=== PATIENT | female | born 1950 | race Caucasian/White ===

== ENCOUNTER 2016-07-16 11:14 | Emergency (ER) | payer OTHER ==
[~2016-07-16] VITALS: Ht 172.7 cm; Wt 110.0 kg
[~2016-07-16 11:14] MED LIST: ALBU8I INH; AMIT50 PO; CYMB60CA PO; FERR324T4 PO; FOLI1TAB PO; FURO1TAB93 PO; GABA300 PO; HYDR-3535 PO; KCL20 PO; MECL25 PO; MULT1TAB46 PO; NITR-29 PO; OXYC1SOL5 PO; PRED10 PO; PROM25TA5 PO; ROBA750T3 PO; WARF10 PO; WARF2.5 PO; Z.0.OXYGEN INH; Z.0.WALKERFRONT; Z.0.WHEELELR; [UNRECOGNIZED DRUG - SUPPLY]
[2016-07-16 11:19] VITALS: BP 145/77; PULSE 79; RESP 20
--- NOTE | 2016-07-16 11:38 | PD ---
HPI Chief Complaint: General Weakness Time Seen by Provider: 11:32 Travel History International Travel<30 days: No Contact w/Intl Traveler<30days: No Traveled to known affect area: No History of Present Illness HPI Patient comes in by EMS from her pain management doctor's office after getting stuck on the toilet. Patient states she went to provide a urine sample for her pain management doctor, when she went to sit on the toilet found was a little lower than she was expecting causing her to sit down hard on the toilet. Patient was able to provide a urine specimen for pain management doctor however was not able get herself up off the toilet and was brought into the emergency department further treatment and evaluation. Patient complaining of pain in her pelvis that is new. Patient denies anything making it better or worse. Pain is aching like in nature. Patient denies any syncope, near-syncope, chest pain, shortness of breath, nausea, vomiting, head injury, loss consciousness, numbness or tingling, abdominal pain, headache, fevers, or diarrhea. Patient also complaining of right knee pain has been going on on for a while now. Patient states that she does fall frequently most recently approximately a week ago and is uncertain if she landed on her knee at that time or not. PFSH Past Medical History Hx Anticoagulant Therapy: Yes Arthritis: Yes Asthma: No Autoimmune Disease: Yes (LUPUS, RHEUMATOID ARTHRITIS) Anxiety: Yes Depression: Yes Heart Rhythm Problems: No Cancer: No Cardiovascular Problems: Yes (CHF) High Cholesterol: No Chemotherapy: No Chest Pain: No Congestive Heart Failure: Yes COPD: Yes Cerebrovascular Accident: No Coronary Artery Disease: Yes Diabetes: No Diminished Hearing: No Endocrine: No GERD: Yes Glaucoma: No Genitourinary: Yes Headaches: No Hepatitis: No Hiatal Hernia: Yes Hypertension: No Immune Disorder: Yes Implanted Vascular Access Dvce: Yes (neuro stimulator) Kidney Stones: No Musculoskeletal: Yes (OSTEOPENIA) Neurologic: No Psychiatric: Yes Reproductive: No Immunizations Current: Yes Migraines: No Myocardial Infarction: No Radiation Therapy: No Renal Failure: No Seizures: No Sickle Cell Disease: No Sleep Apnea: Yes Thyroid Disease: No Ulcer: No Past Surgical History Abdominal Surgery: Yes (,GASTRIC BYPASS) AICD: No Arteriovenous Shunt: No Body Medical Devices: nerve modulator Cardiac Surgery: No Section: Yes Cholecystectomy: Yes Ear Surgery: No Endocrine Surgery: No Eye Surgery: No Genitourinary Surgery: No Gynecologic Surgery: Yes () Insulin Pump: No Joint Replacement: Yes (TOTAL LEFT KNEE REPLACEMENT DEC 2013) Oral Surgery: Yes (WISDOM TEETH REMOVED) Pacemaker: No Thoracic Surgery: No Other Surgery: Yes (GASTRIC BYPASS SURG 01-22-04, , LOWER SPINE SURG) Social History Alcohol Use: Yes (GLASS OR TWO OF WINE EVERY OTHER DAY) Tobacco Use: No (QUIT 1984) Substance Use: No Allergies-Medications (Allergen,Severity, Reaction): Coded Allergies: Horse Serum Proteins (Verified Allergy, Severe, 03/23/15) Reported Meds & Prescriptions Reported Meds & Active Scripts Active Nitrofurantoin 100 Mg Cap 100 Mg PO BIDPC 5 Days Coumadin (Warfarin Sod) 2.5 Mg Tab 2.5 Mg PO MOFR@16 30 Days Coumadin (Warfarin Sod) 10 Mg Tab 10 Mg PO DAILY@16 30 Days Oxycodone/Acetaminophen 5 mg/325 mg 1 Tab Tab 1 Tab PO Q6H PRN Robaxin-750 (Methocarbamol) 750 Mg Tab 1,500 Mg PO TID Hospital Bed Electric (Device) Device 1 Unit Wheelchair Elevated Leg Rest (Wheelelr) Device 1 Unit Walker Front Wheel (Walkerfront) Device 1 Unit Antivert (Meclizine HCl) 25 Mg Tab 25 Mg PO Q8 1 Days Kcl 20 Meq Tab (Potassium Chloride) 20 Meq Tabcr 20 Meq PO BID@12,17 1 Days Elavil 50 Mg Tab (Amitriptyline HCl) 50 Mg Tab 75 Mg PO HS 1 Days Phenergan (Promethazine HCl) 25 Mg Tab 12.5 Mg PO TIDAC 30 Days Ferrous Sulfate 325 Mg Tab 325 Mg PO BID@12,17 30 Days Reported Oxygen (O2) (Miscellaneous Medication) Inha 2 L INH HS Lortab 10 mg/325 mg (Hydrocodone/Acetaminophen 10 mg/325 mg) 1 Tab 1 Tab PO Q4H PRN Multi Vitamin Daily (Multiple Vitamin) 1 Tab Tab 1 Tab PO DAILY Folate (Folic Acid) 1 Mg Tab 1 Mg PO DAILY Ventolin Hfa (Albuterol Sulfate) 8 Gm Aero 1 Puff INH Q4H PRN * SHAKE WELL BEFORE USE * Cymbalta (Duloxetine Hcl) 60 Mg Cap 60 Mg PO DAILY Neurontin (Gabapentin) 300 Mg Cap 300 Mg PO DAILY Deltasone (Prednisone) 10 Mg Tab 5 Mg PO DAILY Lasix (Furosemide) 40 Mg Tab 40 Mg PO DAILY Review of Systems Except as stated in HPI: all other systems reviewed are Neg Physical Exam Narrative GENERAL: Well-developed, overly nourished, in no acute distress, and non-ill appearing. SKIN: Focused skin assessment warm and dry. HEAD: Atraumatic. Normocephalic. EYES: Pupils equal and round. EOMI. No scleral icterus. No injection or drainage. ENT: No nasal bleeding or discharge. Mucous membranes pink and moist. NECK: Trachea midline. Supple. No nuclear rigidity. CARDIOVASCULAR: Regular rate and rhythm. No murmur appreciated. Radial and dorsal pulses 2+, intact, and equal bilaterally. RESPIRATORY: No accessory muscle use. No respiratory distress. Clear to auscultation. Breath sounds equal bilaterally. GASTROINTESTINAL: Abdomen soft, non-tender, nondistended. Hepatic and splenic margins not palpable. Normal bowel sounds 4. No pulsatile mass. MUSCULOSKELETAL: No obvious deformities. No clubbing. No cyanosis. No edema. Full range of motion. Hip: FROM and equal BL with passive flexion, extension, Abduction, Adduction, and internal/external rotation. Pulses equal BL distal to injury. Capillary refill less than 2 seconds distal to injury and equal BL. FROM distal to injury and equal BL. Strength distal to injury equal BL. NV intact distal to injury and equal BL. Plantar flexion and dorsal flexion equal BL. Dorsal pulses equal BL. Sensation equal BL 1st web space. NEUROLOGICAL: Awake and alert. No obvious cranial nerve deficits. Motor grossly within normal limits. Normal speech. PSYCHIATRIC: Appropriate mood and affect; insight and judgment normal. Data Data Last Documented VS Vital Signs Date Time Temp Pulse Resp B/P Pulse Ox O2 Delivery O2 Flow Rate FiO2 07/16/16 14:28 96 07/16/16 13:58 78 18 131/65 Orders Pelvis, Ap Only (Routine) (07/16/16 ) Knee, Complete (4vws) (07/16/16 ) Ct Pelvis W/O Iv Contrast (07/16/16 ) Iv Access Insert/Monitor (07/16/16 12:10) Ecg Monitoring (07/16/16 12:10) Oximetry (07/16/16 12:10) Sodium Chloride 0.9% Flush (Ns Flush) (07/16/16 12:15) Vascular Access Team Consult PRN (07/16/16 12:31) Vascular Poc Ultrasound (07/16/16 ) Splint Or Brace Apply/Monitor (07/16/16 13:29) MDM Medical Decision Making Medical Screen Exam Complete: Yes Emergency Medical Condition: Yes Differential Diagnosis Fracture, sprain, contusion, other Narrative Course The patient has a healing remote fracture. The distal extremity appears neurovascularly intact, without evidence of neurovascular injury nor compartment syndrome. Tendon exam also was intact. The effected limb was splinted. The patient was discharged with fracture and splint care instructions and given warnings for vascular compromise. The patient is to follow up with Orthopedics. The patient agrees with plan. Patient in no obvious distress upon re-evaluation. All pertinent Radiology result(s) discussed with patient. I discussed patient with Dr. Arshad prior to discharge, who reviewed X-rays and is in agreement with plan of care and disposition. Any questions/concerns in reference to patient diagnosis/ condition discussed and clarified prior to patient's discharge. Reinforced sheer importance of close follow up with patient's primary physician or primary care clinic. Instructed patient to return to ED immediately, if symptoms return/ worsen. Pt showed understanding of above instructions. Further instructions and recommendations were detailed in discharge paperwork. Pt ambulated without difficulty out of ED at discharge with her walker and knee immobilizer. Diagnosis Primary Impression: Fibula fracture Qualified Code: S82.831A - Closed fracture of proximal end of right fibula, unspecified fracture morphology, initial encounter Additional Impression: Osteoarthritis Qualified Code: M19.90 - Osteoarthritis, unspecified osteoarthritis type, unspecified site Referrals: Raheel Zaragoza MD Patient Instructions: General Instructions, Knee Immobilizer (ED), Leg Fracture (ED) Additional Instructions: Follow-up with your primary care physician and/or orthopedic doctor this week for reevaluation. Take all your pain medication as prescribed. Apply ice to affected area 20 minutes 4 hours needed for pain. Use your walker to prevent additional falls. Return to the emergency department if symptoms get worse. Kaz Martinez Jul 16, 2016 11:38
--- NOTE | 2016-07-16 12:06 | RADRPT ---
EXAM DATE/TIME: 07/16/2016 11:45 [facility] COMPARISON: ABDOMEN KUB ONLY, July 15, 2014, 8:03. INDICATIONS : Fell a couple days ago. MEDICAL HISTORY : None. SURGICAL HISTORY : None. ENCOUNTER: Initial ACUITY: 2 days PAIN SCORE: 7/10 LOCATION: Bilateral pelvis FINDINGS: There is diffuse decreased bone density identified. There is a deformity of the left superior and inf erior pubic ramus, likely nonacute however this can be confirmed with CT. CONCLUSION: Left superior and inferior pubic rami deformity suggesting nonacute fractures however age-indetermina te. Honorio James MD on July 16, 2016 at 12:04 Board Certified Radiologist. This report was verified electronically.
--- NOTE | 2016-07-16 12:06 | RADRPT ---
EXAM DATE/TIME: 07/16/2016 11:46 [facility] COMPARISON: No previous studies available for comparison. INDICATIONS : Right knee pain, fell a couple days ago. MEDICAL HISTORY : None. SURGICAL HISTORY : None. ENCOUNTER: Initial ACUITY: 2 days PAIN SCORE: 9/10 LOCATION: Right knee FINDINGS: There is severe osteoarthritis of the knee greatest at the medial tibiofemoral compartment. Remote pr oximal fibular shaft fracture deformity. No acute fracture. No effusion. CONCLUSION: Osteoarthritis and remote fibular fracture. Honorio James MD on July 16, 2016 at 12:05 Board Certified Radiologist. This report was verified electronically.
[2016-07-16] MEDS ORDERED: SODIUM CHLORIDE 0.9% FLUSH 10 ML FLUSH IV FLUSH PRN (12:15)
--- NOTE | 2016-07-16 13:28 | RADRPT ---
EXAM DATE/TIME: 07/16/2016 12:54 [facility] COMPARISON: CT ABDOMEN & PELVIS W CONTRAST, July 13, 2014, 17:56. PELVIS AP ONLY, July 16, 2016, 11:45. INDICATIONS : Weakness,fell in bathroom, evaluate for fracture. ORAL CONTRAST: No oral contrast ingested. RADIATION DOSE: 37.42 CTDIvol (mGy) MEDICAL HISTORY : Cardiovascular disease. Lupus. Rheumatoid arthritis.CHF SURGICAL HISTORY : Gastric bypass. Cholecystectomy. ENCOUNTER: Initial ACUITY: 1 day PAIN SCALE: 9/10 LOCATION: pelvis TECHNIQUE: Volumetric scanning of the pelvis was performed. Using automated exposure control and adjustment of the mA and/or kV according to patient size, radiation dose was kept as low as reasonably achievable t o obtain optimal diagnostic quality images. FINDINGS: BOWEL/MESENTERY: The visualized small and large bowel demonstrate no acute abnormality. There is no free fluid. BLADDER: There is no wall thickening or mass. RETROPERITONEUM: There is no aneurysm or lymphadenopathy. There is moderate to severe atherosclerotic disease. REPRODUCTIVE: No acute finding. INGUINAL: There is no lymphadenopathy or hernia. MUSCULOSKELETAL: The bones are undermineralized. There is mild degenerative change at the pubic symphysis and bilatera l hip joints. No acute pelvic fracture is identified. There is severe facet arthrosis at L4-L5 with a ssociated 7 mm of anterolisthesis of L4 on L5. There is height loss of the superior endplate of L5 wi th associated Schmorl's node. No acute fracture line is visualized but this appears represent a irwin e from the July [address] CT. CONCLUSION: 1. No acute fracture is identified within the pelvis. The bones are undermineralized. 2. There is height loss of the superior endplate of L5 which is of uncertain chronicity. I do not see an acute fracture to suggest this is an acute abnormality but it is new when compared to the July 06 CT. 3. Nonacute findings include severe facet arthrosis at L4-L5 resulting in grade 1 anterolisthesis and severe atherosclerotic disease. Garry Varma MD on July 16, 2016 at 13:20 Board Certified Radiologist. This report was verified electronically.
[2016-07-16 13:58] VITALS: BP 131/65
[2016-07-16 14:28] VITALS: O2SAT 96
== END 2016-07-16 14:28 | disposition home or self-care (01) ==
LOC: NEPC 11:14
DX: S82.831A Other fracture of upper and lower end of right fibula, initial encounter for closed fracture (principal); M19.90 Unspecified osteoarthritis, unspecified site; R10.2 Pelvic and perineal pain; W19.XXXA Unspecified fall, initial encounter; Z91.81 History of falling
CPT/HCPCS: 72170; 72192; 73564; 76937; 99284; L1830